=== PATIENT | female | born 2005 | race Caucasian/White ===

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

== ENCOUNTER 2024-07-16 10:51 | Outpatient (CLI) | payer BC, SELFPAY ==
[2024-07-16 12:35] LABS: HIV Combo NEGATIVE (Negative)
[2024-07-16 12:43] LABS: Hepatitis C Ab Qual. W/ RFX NEGATIVE (Negative)
== END 2024-07-16 23:59 | disposition home or self-care (01) ==
LOC: LAB 10:53
PROVIDERS: Visit Provider Obstetrics & Gynecology
DX: Z11.3 Encounter for screening for infections with a predominantly sexual mode of transmission (principal)
CPT/HCPCS: 36415; 86803; 87389